=== PATIENT | male | born 1990 | race Caucasian/White ===

== ENCOUNTER 2017-08-10 21:47 | Emergency (ER) | payer OTHER ==
[~2017-08-10] VITALS: Ht 180.3 cm; Wt 70.3 kg
[~2017-08-10 21:47] MED LIST: DOXYCYCLINE 10100 MG PO; TRAMADOL 50 MG50 MG PO
[2017-08-10] MEDS ORDERED: FAMOTIDINE 20 M20 MG PO (22:11)
[2017-08-10] MEDS ORDERED: PREDNISONE 20 M20 MG PO (22:11)
[2017-08-10] MEDS ORDERED: BENADRYL25 MG PO (22:11)
== END 2017-08-10 22:47 | disposition home or self-care (01) ==
LOC: ER 21:47
DX: T78.40XA Allergy, unspecified, initial encounter (principal); F17.210 Nicotine dependence, cigarettes, uncomplicated; X58.XXXA Exposure to other specified factors, initial encounter

== ENCOUNTER 2018-10-29 04:22 | Emergency (ER) | payer OTHER ==
[~2018-10-29] VITALS: Ht 180.3 cm; Wt 68.0 kg
[~2018-10-29 04:22] MED LIST changes: +BENADRYL25 MG PO; +FAMOTIDINE 20 M20 MG PO; +PREDNISONE 20 M20 MG PO
[2018-10-29 05:08] LABS: HEMATOCRIT 38.2 % (42.0-52.0); HEMOGLOBIN 12.5 gm/dL (14.0-18.0); MCH 30.1 pg (26.0-34.0); MCHC 32.8 g/dL (28.0-37.0); MCV 91.8 fL (80.0-100.0); PLATELET COUNT 125 thou/uL (150-400); RBC 4.16 mil/uL (4.50-6.00); RDW 13.7 % (10.5-14.5); WBC 9.9 thou/uL (4.0-11.0)
[2018-10-29 05:26] LABS: CALCIUM 8.6 mg/dL (8.5-10.1); CREATININE 0.7 mg/dL (0.7-1.3); POTASSIUM 4.1 mmol/L (3.5-5.1)
[2018-10-29] MEDS ORDERED: NAPROSYN500 MG PO (06:31)
[2018-10-29 06:59] VITALS: BP 119/50
[2018-10-29 07:59] LABS: ABSOLUTE NEUTROPHILS 3.3 thou/uL (1.4-8.2); ATYPICAL LYMPHS 14 %
[2018-10-29 08:00] LABS: ANISOCYTOSIS 1+
== END 2018-10-29 07:00 | disposition home or self-care (01) ==
LOC: ER 04:22
PROVIDERS: Emergency Medicine
DX: R50.9 Fever, unspecified (principal); F17.210 Nicotine dependence, cigarettes, uncomplicated

== ENCOUNTER 2020-10-10 18:08 | Inpatient (IN) | payer OTHER ==
[~2020-10-10] VITALS: Ht 180.3 cm; Wt 60.5 kg
[2020-10-10 18:08] VITALS: BP 132/82
[~2020-10-10 18:08] MED LIST changes: +NAPROSYN500 MG PO
[2020-10-10 18:37] LABS: URINE BILIRUBIN NEGATIVE (Negative); URINE BLOOD TRACE (Negative); URINE CLARITY CLEAR; URINE COLOR YELLOW; URINE GLUCOSE-RANDOM* NEGATIVE (Negative); URINE KETONES NEGATIVE (Negative); URINE LEUKOCYTES-REFLEX NEGATIVE (Negative); URINE NITRITE-REFLEX NEGATIVE (Negative); URINE PROTEIN (DIPSTICK) 1+ (Negative); URINE SPECIFIC GRAVITY >= 1.030 (1.005-1.035); URINE UROBILINOGEN 0.2 E.U./dl (0.2-1.0)
[2020-10-10 18:37] LABS: HEMATOCRIT 41.7 % (42.0-52.0); HEMOGLOBIN 13.6 gm/dL (14.0-18.0); MCH 28.9 pg (26.0-34.0); MCHC 32.6 g/dL (28.0-37.0); MCV 88.8 fL (80.0-100.0); PLATELET COUNT 442 thou/uL (150-400); RBC 4.69 mil/uL (4.50-6.00); RDW 13.2 % (10.5-14.5)
[2020-10-10 18:46] LABS: AMP/METHAMP POSITIVE (Negative); BARBITURATES Negative (Negative); BENZODIAZEPINES Negative (Negative); COCAINE Negative (Negative); METHADONE Negative (Negative); OPIATES POSITIVE (Negative); PCP Negative (Negative)
[2020-10-10 18:56] LABS: ANION GAP 14 mmol/L (7-16); BUN 25 mg/dL (7-18); CALCIUM 8.9 mg/dL (8.5-10.1); CHLORIDE 105 mmol/L (98-107); CO2 26 mmol/L (21-32); GLUCOSE 148 mg/dL (74-106); POTASSIUM 4.6 mmol/L (3.5-5.1); SODIUM 145 mmol/L (136-145)
[2020-10-10 19:00] LABS: ABSOLUTE NEUTROPHILS 19.8 thou/uL (1.4-8.2)
[2020-10-10 19:01] LABS: ALBUMIN 4.4 g/dL (3.4-5.0); SALICYLATE < 2.8 mg/dL (2.8-20.0); SGOT 89 U/L (15-37); SGPT 69 U/L (16-63); TOTAL BILIRUBIN 0.2 mg/dL (0.2-1.0); TOTAL PROTEIN 9.1 g/dL (6.4-8.2)
[2020-10-10 19:01] LABS: CASTS None Seen /LPF (None Seen); SQUAMOUS 0-3 Few /LPF (0-3); URINE WBC-REFLEX 6-15 Few /HPF (0-5)
[2020-10-10 19:02] LABS: BACTERIA-REFLEX 1-9 Few /HPF (None Seen); CRYSTALS None Seen /LPF (None Seen); URINE RBC 0-2 Rare /HPF (0-2)
[2020-10-10 21:45] VITALS: BP 120/92
[2020-10-10 22:15] VITALS: BP 142/78
[2020-10-10 22:30] VITALS: BP 142/78
[2020-10-10 22:38] LABS: MAGNESIUM 2.3 mg/dL (1.8-2.4); PHOSPHORUS 8.2 mg/dL (2.6-4.7)
[2020-10-11 00:07] LABS: FOLIC ACID 20.4 ng/mL (8.6-58.9)
[2020-10-11 03:17] LABS: HEMATOCRIT 35.1 % (42.0-52.0); MCHC 33.1 g/dL (28.0-37.0); MCV 87.5 fL (80.0-100.0); RBC 4.01 mil/uL (4.50-6.00); RDW 13.2 % (10.5-14.5)
[2020-10-11 04:16] LABS: HEMOGLOBIN 11.6 gm/dL (14.0-18.0)
[2020-10-11 04:42] VITALS: BP 119/76
[2020-10-11 05:52] LABS: ALBUMIN 3.4 g/dL (3.4-5.0); CALCIUM 8.5 mg/dL (8.5-10.1); CREATININE 1.2 mg/dL (0.7-1.3); TOTAL BILIRUBIN 0.4 mg/dL (0.2-1.0); TOTAL PROTEIN 6.7 g/dL (6.4-8.2)
--- NOTE | 2020-10-11 06:20 | NUR ---
PT ADMITTED FROM ER, PT IS RESTLESS, AGITATED AND IMPULSIVE, LABORED BREATHING NOTED WITH O2 SATS IN THE HIGH 80S, PT PUT ON 4L O2 VIA NC, SUPERVISOR PUMPING NOTIFIED, ORDERS RECEIVED AND ACKNOWLEGED, PT PUT ON HIGH FLOW NASAL CANULA AT 11L, PT O2 BETTER AT 94%, RESTRAINED ORDERS RECEIVED, PT CALMED DOWN AND WENT TO SLEEP ON AND OFF, PT NOTE TO NE MORE AWAKE, AND ALERT THIS MORNING, PT REASSESSED AND RESTRAINS REMOVED AT AROUND 0500, PT IS CALM AND SLEEPING AT THIS TIME, ADMISSION HX AND ASSESSMENT COMPLETED, WILL PASS ON REPORT
[2020-10-11 07:45] VITALS: BP 116/56
[2020-10-11 12:10] VITALS: BP 113/59
[2020-10-11 15:40] VITALS: BP 116/58
--- NOTE | 2020-10-11 18:35 | NUR ---
PT ALERT AND ORIENTED, PT STATES THAT HE LIVES IN HIS CAR, DENIES SUICIDAL IDEALS. PT HAS RECEIVED PRN ATIVAN 1MG X2 TODAY D/T WITHDRAW SYMPTOMS. PT HAS BEEN DROWSY THORGHOUT THE SHIFT AND HAS SLEPT MAJORITY OF THE DAY. VITAL SIGNS STABLE AT THIS TIME. NO QUESTIONS OR CONCERNS AT THIS TIME.
[2020-10-11 19:47] VITALS: BP 119/67
[2020-10-11 20:00] VITALS: BP 115/68
--- NOTE | 2020-10-12 03:16 | NUR ---
ASSUMED PT CARE AT CHANGE OF SHIFT, PT IS SLEEPING, DENIES ANY CONCERNS, ASESSMENTS CHARTED, PRN ATIVAN GIVENX1, FLUIDS INFUSING PER ORDERS, NO NEEDS AT THIS TIME, WILL CONTINUE TO MONITOR
[2020-10-12 04:30] VITALS: BP 125/65
[2020-10-12 05:31] LABS: ALBUMIN 2.7 g/dL (3.4-5.0); CALCIUM 8.4 mg/dL (8.5-10.1); CREATININE 0.9 mg/dL (0.7-1.3); MAGNESIUM 1.8 mg/dL (1.8-2.4); PHOSPHORUS 2.8 mg/dL (2.5-4.9); POTASSIUM 4.1 mmol/L (3.5-5.1)
[2020-10-12 07:15] VITALS: BP 99/57
[2020-10-12] MEDS ORDERED: KEFLEX500 M1 PO (08:55)
[2020-10-12] MEDS ORDERED: CHLORDIAZEPOXID25 M1 PO (08:56)
[2020-10-12 10:44] VITALS: BP 125/65
--- NOTE | 2020-10-12 11:03 | EKG ---
[address] [place] [address] ELECTROCARDIOGRAM REPORT Name: DOMINGA BUCKLEY Room #: 216-P ADM IN M.R.#: [id number] Admission: 10/10/20 Attend Phys: July Becerra Discharge: Date of : 89 Report #: [id number] [facility] ED Test Date: 2020-10-10 Test Time: 19:07:16 Pat Name: DOMINGA BUCKLEY Department: Room: 216 Gender: M [employer]: cu : 1990 Requested By: Jesus Stanley Order Number: [id number] MD: Naren Larson Measurements Intervals Maria Stein Rate: 106 P: 71 WV: 123 QRS: 75 QRSD: 84 T: 57 QT: 332 QTc: 441 Interpretive Statements Sinus tachycardia Minimal ST depression, inferior leads No previous ECG available for comparison Electronically Signed On 10-12-2020 11:03:18 CDT by Naren Larson [email or web address] <ELECTRONICALLY SIGNED> By: Naren Larson MD 10/12/20 1103 [id number] Naren Larson MD /CORY
== END 2020-10-12 16:24 | disposition home or self-care (01) | DRG 871 ==
LOC: ER 18:08 → EROBS 21:43 → 2N 22:15
PROVIDERS: Emergency Medicine; Nurse Practitioner Family; ADMIT Hospitalist; ATTEND Hospitalist
PROC: 5A0935A Assistance with Respiratory Ventilation, Less than 24 Consecutive Hours, High Flow/Velocity Cannula (ICD-10-PCS; principal; 2020-10-10)
DX: A41.9 Sepsis, unspecified organism (principal); R65.21 Severe sepsis with septic shock; G92 Toxic encephalopathy; N17.9 Acute kidney failure, unspecified; F17.200 Nicotine dependence, unspecified, uncomplicated; F19.10 Other psychoactive substance abuse, uncomplicated; F10.10 Alcohol abuse, uncomplicated; Y90.9 Presence of alcohol in blood, level not specified; Z79.899 Other long term (current) drug therapy
CPT/HCPCS: 10081